=== PATIENT | male | born 1955 | race Caucasian/White ===

== ENCOUNTER 2022-02-18 08:38 | Day surgery (SDC) | payer MEDICARE, BC ==
[~2022-02-18 08:38] MED LIST: Midazolam 1 MG/ML 2 ML SDV ONE; Propofol 200 MG/20 ML SDV ONE
[2022-02-18] MEDS ORDERED: Sodium Chloride 0.9% 10 ML Syringe FLUSH PRN (09:05)
[2022-02-18] MEDS ORDERED: Lactated Ringers 1,000 ML IV SCH (09:15)
== END 2022-02-18 11:23 | disposition home or self-care (01) ==
LOC: LL.SDS 08:38
PROVIDERS: ATTEND Surgery
DX: Z12.11 Encounter for screening for malignant neoplasm of colon (principal); I10 Essential (primary) hypertension; I35.0 Nonrheumatic aortic (valve) stenosis; H61.23 Impacted cerumen, bilateral; Z86.010 Personal history of colon polyps; Z98.0 Intestinal bypass and anastomosis status
CPT/HCPCS: 00812; J2250; J2704; J7120